=== PATIENT | male | born 2000 | race Caucasian/White ===

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

== ENCOUNTER → 2018-06-10 | Outpatient (CLI) | payer BC ==
[2013-10-07 19:31] VITALS: BP 103/56
== END ==
LOC: LAB 12:43
DX: R30.0 Dysuria (principal); Z20.828 Contact with and (suspected) exposure to other viral communicable diseases